=== PATIENT | male | born 1990 | race Caucasian/White ===

== ENCOUNTER 2020-11-01 22:29 | Emergency (ER) | payer SELFPAY ==
[~2020-11-01] VITALS: Ht 172.7 cm; Wt 74.8 kg
[2020-11-02 02:11] VITALS: BP 138/84
[2020-11-02] MEDS ORDERED: IBUPROFEN 800 MG TAB PO ONE (03:30)
== END 2020-11-02 04:59 | disposition home or self-care (01) ==
LOC: ER 22:29
DX: S66.811A Strain of other specified muscles, fascia and tendons at wrist and hand level, right hand, initial encounter (principal); I10 Essential (primary) hypertension; F31.9 Bipolar disorder, unspecified; F25.9 Schizoaffective disorder, unspecified; F17.210 Nicotine dependence, cigarettes, uncomplicated; Z88.2 Allergy status to sulfonamides; W22.8XXA Striking against or struck by other objects, initial encounter; Y93.89 Activity, other specified; Y92.89 Other specified places as the place of occurrence of the external cause; Y99.8 Other external cause status
CPT/HCPCS: 73110; 73130